=== PATIENT | female | born 1945 | race African-American/Black ===

== ENCOUNTER 2017-11-11 12:50 | Emergency (ER) | payer BC, MEDICARE ==
[~2017-11-11] VITALS: Ht 170.2 cm; Wt 77.0 kg
[2017-11-11 13:02] VITALS: BP 151/93
[2017-11-11 14:53] LABS: BASOPHILS % 0.9 % (0.0-2.0); EOSINOPHILS % 6.5 % (0.0-5.0); HEMATOCRIT. 39.5 % (36.0-48.0); HEMOGLOBIN. 12.5 g/dL (12.0-16.0); MEAN CORPUSCULAR HEMOGLOBIN 26.3 pg (28.0-32.0); MEAN CORPUSCULAR VOLUME 83.2 fL (81.0-99.0); MEAN PLATELET VOLUME 7.4 fl (7.4-10.4); MONOCYTES % 9.8 % (2.0-8.0); NEUTROPHILS % 52.8 % (40.0-76.0); PLATELET 264 x1000/uL (130-400); RED BLOOD CELL COUNT 4.75 mill/uL (4.2-5.4); RED CELL DISTRIBUTION WIDTH 14.8 % (11.6-14.6)
[2017-11-11 14:56] LABS: PARTIAL THROMBOPLASTIN TIME 27.3 sec (23.4-31.0); PROTHROMBIN TIME 10.6 sec (9.4-11.6)
[2017-11-11 15:06] LABS: CARBON DIOXIDE 23 mEq/L (21-32); CHLORIDE 112 mEq/L (98-107); CREATINE KINASE 158 IU/L (26-192); TROPONIN I < 0.02 ng/mL (0.00-0.04)
[2017-11-11 15:07] LABS: CREATINE KINASE MB FRACTION 2.4 ng/mL (0.5-3.6)
== END 2017-11-11 15:49 | disposition left against medical advice (07) ==
LOC: ER 13:05
DX: R53.1 Weakness (principal); Z53.21 Procedure and treatment not carried out due to patient leaving prior to being seen by health care provider
CPT/HCPCS: 36415; 71045; 80053; 82550; 82553; 82962; 83690; 83735; 83880; 84484; 85025; 85610; 85730; 93005